=== PATIENT | male | born 1945 | race Caucasian/White ===

== ENCOUNTER → 2019-07-24 | Outpatient (CLI) | payer OTHER ==
[~2019-07-24] VITALS: Ht 172.7 cm; Wt 72.6 kg
[~2019-07-24] MED LIST: ASPIR 8181 MG PO; FINASTERIDE5 MG PO; FLOMAX0.4 MG PO; LIPITOR40 MG PO
--- NOTE | ~2019-07-24 | P ---
[facility] [place] [address] PROCEDURE REPORT Name: GLENNY PUENTE Room #: REG [facility]#: [id number] Admission: 07/24/19 ������������������ Attend Phys: Jose A Ferreira MD Discharge: ������������������ Date of : 43 Report #: [id number] THIS REPORT FOR: //name// CC: NUVIA Ferreira Physician staff Toi Guevara MD DATE OF SERVICE: 07/24/2019 OUTPATIENT COLONOSCOPY BRIEF HISTORY: The patient is a 73-year-old male with history of colon polyps for high risk screening colonoscopy. PREOPERATIVE DIAGNOSIS: High risk screening colonoscopy. POSTOPERATIVE DIAGNOSES: 1. Diminutive colon polyps. 2. Moderate sigmoid diverticulosis coli. MEDICATIONS: Deep sedation with propofol per anesthesia. SPECIMENS: 1. Diminutive polyp, mid ascending colon. 2. Diminutive polyp at 60 cm. ESTIMATED BLOOD LOSS: 3 mL. PROCEDURE: Colonoscopy to cecum and terminal ileum with biopsy. FINDINGS: Prior to propofol sedation, procedure of colonoscopy was discussed with the patient, as well as potential risks and its complications. He indicates he understands and desires to proceed. DESCRIPTION OF PROCEDURE: With the patient in the left lateral decubitus position, digital examination was completed, which revealed no abnormalities. Subsequently, the Olympus video colonoscope was introduced in the rectum, advanced under direct vision to the cecum. It was done with minimal difficulty. The cecum was identified by the ileocecal valve and the appendiceal orifice. I was able to visualize the distal segment of the terminal ileum, which was inspected and noted to be unremarkable. At that point, the scope was slowly withdrawn and careful circumferential views obtained including retroflexing the scope in the ascending colon. Upon slow withdrawal of the scope, the prep was good. The mucosa was within normal limits, normal vascular pattern, normal light reflex. As we withdrew the scope, no abnormalities were noted until the [facility] [address] [place] [address] PROCEDURE REPORT Name: GLENNY PUENTE [id number] Admission: 07/24/19 ������������������ Attend Phys: Jose A Ferreira MD Discharge: ������������������ Date of : 43 Report #: [id number] mid-ascending colon was reached, at which point a diminutive polyp was seen and removed with cold biopsy forceps. Scope was further withdrawn and no additional abnormalities were noted until the descending colon was reached and at 60 cm, a diminutive polyp was seen and removed with biopsy forceps. The scope was further withdrawn and in the sigmoid colon, there was noted to be [id number] sigmoid diverticular disease without endoscopic evidence of diverticulitis. The scope was withdrawn into the rectum and no abnormalities were noted. Upon retroflexion, no abnormalities were noted. The scope was withdrawn. The patient tolerated the procedure well. CONDITION OF THE PATIENT UPON DISCHARGE: Following procedure, the patient was drowsy, aroused and conversant, and will be discharged home when fully ambulatory. INSTRUCTIONS TO THE PATIENT AND FAMILY AT THE TIME OF DISCHARGE: Two diminutive polyps identified and removed as described above. We will follow up on the path and make further recommendations. If one or both polyps are adenomatous, he should return in 5 years. If none of them are adenomatous, consider colonoscopy in 10 years providing he has good health at that time. Last colonoscopy was nearly 6 years ago. Withdrawal time from the cecum was 16 minutes 11 seconds. ��������������������������������������������� ���������������������������������������� By: ��������������������������������������������� 1125 0012 Jose A Ferreira MD /nt
--- NOTE | 2019-07-27 13:07 | PATH ---
[facility] [place] [address] PATHOLOGY RPT PROCEDURE Name: GLENNY BARRAGAN Madhuri Room #: REG [facility] Doss.#: [id number] ������������������ Admission: 07/24/19 ������������������ Date of : 43 Discharge: Report #: [id number] Path Case #: [id number] [facility] Accession Number: [id number] . 01 Material submitted: . PART A: colon - POLYP AT MID-ASCENDING COLON BX. Modifiers: mid, ascending PART B: colon - POLYP AT 60CM BX . 01 Clinical history: . Colon polyps. . 02 Diagnosis: A. Polyp, at mid ascending colon, endoscopic biopsy: - Compatible with a hyperplastic polyp. - Negative for dysplasia. . B. Polyp, at 60 cm, endoscopic biopsy: - Hyperplastic polyp. - Negative for dysplasia. . (IUV:mml; 07/27/2019) QLM 07/27/2019 1109 Local . 02 Electronically signed: . Jen Genao MD, Pathologist NPI- [id number] . 01 Gross description: . A. Received in formalin labeled "Glenny Barragan, polyp at mid ascending colon" is a 0.4 x 0.3 x 0.1 cm fragment of white-brown mucosa. The specimen is submitted in A1. . B. Received in formalin labeled "Glenny Barragan, polyp at 60 cm" is a 0.3 x 0.3 x 0.1 cm fragment of white-brown mucosa. The specimen is submitted in B1. [place] [place] [facility] 07/25/2019 1537 Local . 02 Pathologist provided ICD-10: K63.5 . 02 CPT . 308477, 172055 Specimen Comment: A courtesy copy of this report has been sent to Specimen Comment: [phone], , . Specimen Comment: Report sent to ,DR ZUNIGA / DR MACK Performed at: 01 [place] [address] PATHOLOGY RPT PROCEDURE Name: GLENNY BARRAGAN Room #: REG [facility] [place]#: [id number] ������������������ Admission: 07/24/19 ������������������ Date of : 43 Discharge: Report #: [id number] Path Case #: [id number] [address] [facility] [address], [place], [place] [id number] MD Dima Norris MD Phone: [phone] Performed at: [address] [id number] MD Jen Genao MD Phone: [phone]
== END | disposition home or self-care (01) ==
LOC: GI 08:40
DX: Z12.11 Encounter for screening for malignant neoplasm of colon (principal); Z86.010 Personal history of colon polyps; K63.5 Polyp of colon; K57.30 Diverticulosis of large intestine without perforation or abscess without bleeding; E78.5 Hyperlipidemia, unspecified; Z98.890 Other specified postprocedural states; Z79.899 Other long term (current) drug therapy; Z79.82 Long term (current) use of aspirin
CPT/HCPCS: 62110; 62900